=== PATIENT | female | born 1945 | race Caucasian/White ===

== ENCOUNTER 2018-01-09 08:30 | Day surgery (SDC) ==
[2018-01-09] MEDS: BETADINE OPTH PREP OP PRN ×2 (09:28→10:27)
[2018-01-09] MEDS: TETRACAINE 0.5% UNIT-DOSE OP PRN ×2 (09:28→10:27)
[2018-01-09] MEDS: CYCLOGYL 2% OPTH OP PRN ×3 (09:29→09:39)
[2018-01-09] MEDS ORDERED: BRIMONIDINE TARTRATE 0.2% OPTH SOL OP PRN (09:39)
[2018-01-09] MEDS ORDERED: ZOFRAN 4 MG/2 ML IVP ONE (09:39)
[2018-01-09] MEDS ORDERED: DEX-MOXI-KETOR OPTH INJ 1/0.5/0.4 MG/ML IO ONE (09:39)
[2018-01-09] MEDS ORDERED: BSS WITH EPINEPHRINE OP ONE (09:39)
[2018-01-09] MEDS ORDERED: LIDOCAINE 1% 20 ML MDV ID STA (09:39)
[2018-01-09] MEDS ORDERED: LIDOCAINE 1%/PHENYLEPHRINE 1.5% BSS (SURGERY) INTRAOCULA ONE (09:39)
[2018-01-09 09:40] VITALS: TEMP 97.8
[2018-01-09] MEDS ORDERED: VERSED ONE (10:44)
[2018-01-09] MEDS ORDERED: SUBLIMAZE ONE (10:44)
[2018-01-09 13:49] VITALS: BP 128/56
== END 2018-01-09 11:30 | disposition home or self-care (01) ==
LOC: SURG 08:30
PROVIDERS: ATTEND Ophthalmology
DX: H25.813 Combined forms of age-related cataract, bilateral (principal)

== ENCOUNTER 2018-01-24 11:32 | Day surgery (SDC) ==
[2018-01-24] MEDS: BETADINE OPTH PREP OP PRN ×2 (13:39→14:15)
[2018-01-24] MEDS: TETRACAINE 0.5% UNIT-DOSE OP PRN ×2 (13:39→14:15)
[2018-01-24] MEDS: CYCLOGYL 2% OPTH OP PRN ×3 (13:40→13:50)
[2018-01-24] MEDS ORDERED: BSS WITH EPINEPHRINE OP ONE (13:44)
[2018-01-24] MEDS ORDERED: BRIMONIDINE TARTRATE 0.2% OPTH SOL OP PRN (13:44)
[2018-01-24] MEDS ORDERED: LIDOCAINE 1%/PHENYLEPHRINE 1.5% BSS (SURGERY) INTRAOCULA ONE (13:44)
[2018-01-24] MEDS ORDERED: ZOFRAN 4 MG/2 ML IVP ONE (13:44)
[2018-01-24] MEDS ORDERED: LIDOCAINE 1% 20 ML MDV ID STA (13:44)
[2018-01-24] MEDS ORDERED: DEX-MOXI-KETOR OPTH INJ 1/0.5/0.4 MG/ML IO ONE (13:44)
[2018-01-24] MEDS ORDERED: VERSED ONE (14:30)
[2018-01-24] MEDS ORDERED: SUBLIMAZE ONE (14:30)
[2018-01-24 17:35] VITALS: TEMP 98.6
[2018-01-26 13:33] VITALS: BP 126/67
== END 2018-01-24 15:10 | disposition home or self-care (01) ==
LOC: SURG 11:32
PROVIDERS: ATTEND Ophthalmology
DX: H25.812 Combined forms of age-related cataract, left eye (principal)